=== PATIENT | male | born 1985 | race Two or more races ===

== ENCOUNTER 2022-10-03 22:29 | Emergency (ER) | payer OTHER ==
[~2022-10-03] VITALS: Ht 167.6 cm; Wt 75.0 kg
[2022-10-03] MEDS ORDERED: SODIUM CHLORIDE 0.9% 1,000 ML IV ONE (23:00)
[2022-10-03] MEDS ORDERED: LORazepam 2MG/ML-1ML VIAL IV ONE (23:00)
[2022-10-03 23:53] LABS: Basophils # (auto) 0 10 ^3/uL (0-0.2); Basophils % (auto) 1.1 % (0.0-2.0); Eosinophils # (auto) 0.1 10 ^3/uL (0-0.8); Hematocrit 39.3 % (41.0-53.0); Hemoglobin 13.9 g/dL (13.5-17.5); Lymphocytes # (auto) 1.3 10 ^3/uL (0.4-5.4); Mean Corpuscular Hemoglobin 34.5 pg (28.0-32.0); Monocytes # (auto) 0.3 10 ^3/uL (0-1.3); Neutrophils # (auto) 2.1 10 ^3/uL (1.6-8.6)
[2022-10-03 23:56] LABS: Eosinophils % (auto) 1.4 % (0.0-7.0); Lymphocytes % (auto) 35.1 % (10.0-50.0); Mean Corpuscular Hgb Conc. 35.3 g/dL (32.0-36.0); Mean Corpuscular Volume 97.7 fL (80.0-100.0); Monocytes % (auto) 7.6 % (0.0-12.0); Neutrophils % (auto) 54.8 % (37.0-80.0); Nucleated Red Blood Cells % 0.1 %; Red Blood Cells 4.02 10^6/uL (4.5-5.90); White Blood Cell 3.8 10^3/uL (4.4-10.8)
[2022-10-04 00:44] LABS: Albumin 4.2 g/dL (3.4-5.0); Calcium 9.1 mg/dL (8.5-10.1); Potassium 3.8 mmol/L (3.5-5.1)
[2022-10-04 00:46] LABS: BUN/Creatinine Ratio 11.3
[2022-10-04 00:49] LABS: Bilirubin, Total 1.6 mg/dL (0.2-1.0); Total Protein 7.6 g/dL (6.4-8.2)
[2022-10-04] MEDS ORDERED: LORazepam 0.5 MG TAB PO ONE (02:30)
[2022-10-04 02:35] VITALS: BP 153/99
== END 2022-10-04 02:41 | disposition home or self-care (01) ==
LOC: ER 22:30
DX: R42 Dizziness and giddiness (principal); E87.1 Hypo-osmolality and hyponatremia; F10.239 Alcohol dependence with withdrawal, unspecified; E86.0 Dehydration; E80.7 Disorder of bilirubin metabolism, unspecified; F41.9 Anxiety disorder, unspecified
CPT/HCPCS: 36415; 70450; 71045; 80053; 83690; 83735; 83880; 84484; 85025; 93005

== ENCOUNTER 2024-10-13 01:33 | Emergency (ER) | payer SELFPAY ==
[~2024-10-13] VITALS: Ht 167.6 cm; Wt 64.0 kg
[2024-10-13 02:05] VITALS: BP 118/78; PULSE 72; RESP 19; O2SAT 96
== END 2024-10-13 03:08 | disposition left against medical advice (07) ==
LOC: ER 01:33
DX: M79.645 Pain in left finger(s) (principal); Z53.21 Procedure and treatment not carried out due to patient leaving prior to being seen by health care provider; W22.8XXA Striking against or struck by other objects, initial encounter; Y93.89 Activity, other specified; Y92.89 Other specified places as the place of occurrence of the external cause; Y99.8 Other external cause status